=== PATIENT | female | born 1975 | race African-American/Black ===

== ENCOUNTER 2018-09-16 03:40 | Emergency (ER) | payer BC ==
[~2018-09-16] VITALS: Ht 167.6 cm; Wt 112.0 kg
--- NOTE | 2018-09-16 03:53 | NUR ---
Dr Pandey into eval patient
[2018-09-16] MEDS ORDERED: OXYCODONE/APAP 5-325 MG TABLET PO ONE (04:00)
[2018-09-16] MEDS ORDERED: PENICILLIN G BENZATHINE 2.4 MMU/4 ML DISP.SYRIN IM ONE ×2 (04:00→04:04)
[2018-09-16] MEDS ORDERED: ONDANSETRON ODT 4 MG TAB.RAPDIS SL ONE (04:00)
[2018-09-16] MEDS ORDERED: OXYCODONE/APAP 5-325 MG TABLET ONE (04:03)
[2018-09-16] MEDS ORDERED: ONDANSETRON ODT 4 MG TAB.RAPDIS ONE (04:04)
[2018-09-16 04:20] VITALS: BP 158/100
--- NOTE | 2018-09-16 04:20 | NUR ---
Patient discharged to home in stable conditon with family taking patient home. Written and verbal after care instructions given. Patient verbalizes understanding of instructions. Walked out of ER with no distress noted
== END 2018-09-16 04:21 | disposition home or self-care (01) ==
LOC: ER 03:43
DX: K08.89 Other specified disorders of teeth and supporting structures (principal)
CPT/HCPCS: A4663; Q0162

== ENCOUNTER 2021-01-17 06:00 | Emergency (ER) | payer BC ==
[~2021-01-17] VITALS: Ht 167.6 cm; Wt 116.1 kg
[2021-01-17] MEDS ORDERED: metformin PO (06:31)
[2021-01-17] MEDS ORDERED: AMLO-212 PO (06:31)
[2021-01-17 06:54] LABS: *URINE HCG, QUAL NEG (NEGATIVE)
[2021-01-17 06:58] LABS: *BILIRUBIN,URIN 1+ (NEGATIVE); *BLOOD, URINE 3+ (NEGATIVE); *CLARITY,URINE CLOUDY (CLEAR); *COLOR,URINE RED (YELLOW); *KETONES,URINE TRACE (NEGATIVE); *UROBILINOGEN,URINE 0.2 E.U./dl (NORMAL); LEUKOCYTE ESTERASE ,URINE NEGATIVE (NEGATIVE); NITRITE, URINE NEGATIVE (NEGATIVE); PH,URINE 5.5 (5.0-8.0); UGLUCOSE NEGATIVE (NEGATIVE)
[2021-01-17 07:05] LABS: HEMATOCRIT 33.7 % (31.2-41.9); MEAN CORPUSCULAR HEMOGLOBIN 28.9 uug (24.7-32.8); MEAN CORPUSCULAR VOLUME 87.1 fL (75.5-95.3); PLATELET COUNT (AUTO) 348 K/uL (179-408)
[2021-01-17] MEDS ORDERED: ESTROGENS,CONJUGATED 25 MG VIAL ONE (08:38)
--- NOTE | 2021-01-17 08:47 | NUR ---
provera, 25mg, im administered at 0845, left buttock per md order, see the order at miscellaneous intervention.
[2021-01-17 08:57] VITALS: BP 149/98
--- NOTE | 2021-01-17 08:57 | NUR ---
Patient discharged to home in stable condition. Written and verbal after care instructions given. Patient verbalizes understanding of instructions. Stressed follow up or return to ER for worsening s/s.
[2021-01-17] MEDS ORDERED: medroxyPROGESTERone ACET 5 MG TABLET PO SCH (09:00)
[2021-01-17 11:12] LABS: BACTERIA,URINE FEW /HPF (NONE SEEN); RBC,URINE TNTC /HPF (0-3); SQUAMOUS EPITHELIAL CELL,UR FEW /HPF (NONE SEEN)
[2021-01-17 11:13] LABS: URINE AMORPHOUS URATE MODERATE /HPF
== END 2021-01-17 08:59 | disposition home or self-care (01) ==
LOC: ER 06:03
DX: N93.8 Other specified abnormal uterine and vaginal bleeding (principal); E11.65 Type 2 diabetes mellitus with hyperglycemia; Z79.84 Long term (current) use of oral hypoglycemic drugs; I10 Essential (primary) hypertension; Z79.899 Other long term (current) drug therapy
CPT/HCPCS: J1410 ×9; 36415; 76856; 84703; 85025; A4663